=== PATIENT | male | born 1960 | race Caucasian/White ===

== ENCOUNTER 2016-10-13 14:39 | Emergency (ER) | payer SELFPAY ==
[~2016-10-13 14:39] MED LIST: ASPI325T PO; BACL10TA PO; BUPR-86 PO; ENOX40P SQ; GABA300C3 PO; GABA600T PO; HYDR-3129 PO; LISI-363 PO; LOVA20TA PO; METF500 PO; Z.0.COMMODE-3:1; Z.0.CPM; Z.0.WALKERFRONT
[2016-10-13 14:43] VITALS: BP 131/60; PULSE 78; RESP 24; TEMP 97.4; O2SAT 98
== END 2016-10-13 17:10 | disposition left against medical advice (07) ==
LOC: NED 14:39
DX: R68.89 Other general symptoms and signs (principal)
CPT/HCPCS: 99281